=== PATIENT | female | born 1965 | race Caucasian/White ===

== ENCOUNTER 2017-07-24 14:47 | Day surgery (SDC) | payer OTHER ==
[2017-07-24] MEDS ORDERED: MIDAZOLAM 1 MG/ML 2 ML INJ IV (16:00)
[2017-07-24] MEDS ORDERED: EPHEDrine SULFATE 50 MG/5 ML SYG IV (16:00)
[2017-07-24] MEDS ORDERED: TRIMETHOBENZAMIDE 100 MG/ML VIAL IM (16:00)
[2017-07-24] MEDS ORDERED: HYDROmorphONE (0.2 MG/ML) 10ML SYG IV ×3 (16:00)
[2017-07-24] MEDS ORDERED: hydrALAzine 20 MG INJ IV (16:00)
[2017-07-24] MEDS ORDERED: DIPHENHYDRAMINE 50 MG INJ IV (16:00)
[2017-07-24] MEDS ORDERED: IPRATROPIUM (NEB) 0.5 MG/2.5 ML AMP HHN (16:00)
[2017-07-24] MEDS ORDERED: ALBUTEROL 0.083% (NEB) 2.5 MG/3 ML AMP HHN (16:00)
[2017-07-24] MEDS ORDERED: LABETALOL HCL 20MG INJ IV (16:00)
[2017-07-24] MEDS ORDERED: ONDANSETRON 4 MG INJ IV (16:00)
[2017-07-24] MEDS ORDERED: OXYCODONE/ACETAMINOPHEN (5/325) TAB PO ×2 (16:00)
[2017-07-24] MEDS ORDERED: FENTAnyl 50 MCG/ML VIAL IV ×3 (16:00)
[2017-07-24] MEDS ORDERED: MEPERIDINE 25 MG INJ IV (16:00)
[2017-07-24] MEDS ORDERED: PROPOFOL 20 ML (16:48)
[2017-07-24] MEDS ORDERED: FENTAnyl 50 MCG/ML VIAL (16:48)
[2017-07-24] MEDS ORDERED: MIDAZOLAM 1 MG/ML 2 ML INJ (16:48)
[2017-07-24] MEDS ORDERED: ONDANSETRON 4 MG INJ (16:49)
[2017-07-24] MEDS ORDERED: KETOROLAC 30 MG INJ (16:50)
[2017-07-24] MEDS ORDERED: BUPIVACAINE 0.5% (SDV) 30 ML INJ (16:53)
[2017-07-24] MEDS ORDERED: LIDOCAINE 1% (MPF) 30 ML INJ (16:53)
[2017-07-24] MEDS ORDERED: POLYMYXIN/BACITRACIN 1L IRRIG ×2 (17:15→17:51)
[2017-07-24] MEDS: BUPIVACAINE 0.5% 30 ML VIAL INJ (17:19)
[2017-07-24] MEDS: LIDOCAINE 1% (MDV) 20 ML INJ INJ (17:19)
[2017-07-24] MEDS: POLYMYXIN/BACITRACIN 1L IRRIG IRR (17:20)
== END 2017-07-24 18:53 | disposition home or self-care (01) ==
LOC: SDS 14:47
DX: M20.011 Mallet finger of right finger(s) (principal); S62.632D Displaced fracture of distal phalanx of right middle finger, subsequent encounter for fracture with routine healing; X58.XXXD Exposure to other specified factors, subsequent encounter
CPT/HCPCS: 26765; 73140; 84703